=== PATIENT | female | born 1960 | race American Indian/Alaskan Native ===

== ENCOUNTER 2020-04-17 12:01 | Day surgery (SDC) | payer BC ==
[~2020-04-17 12:01] MED LIST: SODIUM CHLORIDE 0.9% 1000 ML 1,000 ML IV SCH
--- NOTE | 2020-04-17 13:55 | Anesthesia Consultation ---
Anesthesia Consult and Med Hx - Airway Anesthetic Teeth Evaluation: Good (cracked bottom rear left) ROM Head & Neck: Adequate Mental/Hyoid Distance: Adequate Mallampati Class: Class II Intubation Access Assessment: Probably Good - Pre-Operative Health Status ASA Pre-Surgery Classification: ASA3 Proposed Anesthetic Plan: MAC - Pulmonary Hx Smoking: No Hx Asthma: No Hx Respiratory Symptoms: No SOB: No COPD: No Home Oxygen Therapy: No Hx Pneumonia: No Hx Sleep Apnea: No - Cardiovascular System Hx Hypertension: Yes Hx Coronary Artery Disease: Yes Hx Heart Attack/AMI: No Hx Angina: No Hx Percutaneous Transluminal Coronary Angioplasty (PTCA): No Hx Cardia Arrhythmia: No Hx Pacemaker: No Hx Internal Defibrillator: No Hx Valvular Heart Disease: No Hx Heart Murmur: No Hx Peripheral Vascular Disease: Yes (clots in the legs 11/24) - Central Nervous System Hx Neuromuscular Disorder: No Hx Seizures: No CVA: Yes (ministrokes 2016) Hx Back Pain: No Hx Psychiatric Problems: No - Gastrointestinal Hx Ulcer: No Hx Gastroesophageal Reflux Disease: No - Endocrine Hx Renal Disease: No Hx End Stage Renal Disease: No Hx Cirrhosis: No Hx Liver Disease: No Hx Insulin Dependent Diabetes: No Hx Non-Insulin Dependent Diabetes: No Hx Thyroid Disease: No Hx Hypothyroidism: No Hx Hyperthyroidism: No - Hematic Hx Anemia: Yes Hx Sickle Cell Disease: No - Other Systems Hx Alcohol Use: No Hx Substance Use: No Hx Cancer: No Hx Obesity: Yes
--- NOTE | 2020-04-17 13:56 | Anesthesia Day of Surgery ---
Anesthesia Day of Surgery - Day of Surgery Patient Examined: Yes Patient H&P Reviewed: Yes Patient is NPO: Yes
[2020-04-17] MEDS ORDERED: propofoL 200 MG/20 ML VIAL IV ONE ×2 (14:02)
[2020-04-17] MEDS ORDERED: LIDOCAINE MPF (2%) 20 MG/1 ML VIAL 5 ML ONE (14:09)
--- NOTE | 2020-04-17 14:41 | Procedure Note ---
Date of procedure: 04/17/20 Pre-op diagnosis: Anemia/ GERD/ Colon Connor;yp Screening Post-op diagnosis: other (Mild to Moderat Erosive Esophagitis and Gastritis/R/O Celiac Disease/Minor,Proximal Colon Diverticuli/ Few Small Rectal Polyps (possibly Hyperplastic)) Anesthesia: MAC Surgeon: DARSHAN HURLEY Estimated blood loss: minimal Pathology: list Specimen disposition: to lab Condition: stable Disposition: same day (Treat with PPI and avoid aspirin and NSAID for 5 days; otherwise resume home medication and follow up in 1 to 2 weeks ([phone]).)
--- NOTE | 2020-04-17 15:00 | Operative Report ---
PROCEDURE: Esophagogastroduodenoscopy with biopsy. INDICATIONS: This is a 60-year-old female originally from [facility] who is being assessed because of anemia and GERD symptoms. EGD was done to make sure there was not any significant upper GI pathology present. DESCRIPTION OF PROCEDURE: The procedure was done after getting informed consent with MAC anesthesia. Instrument was passed through the hypopharynx into the esophagus, which showed [id number] erosive esophagitis. Biopsy was done from the distal as well as the midesophagus to rule out for eosinophilic esophagitis and to assess for the severity of the erosive esophagitis. Stomach showed gastritis. No ulcers were noted in the straight or the retroverted view. Biopsy was done from the gastric antrum, gastric body and angular incisura to rule out for H. pylori and atrophic gastritis. Pylorus was patent. Duodenum in the first and second portion appeared normal. Biopsy was done from the second part also to rule out for possible associated celiac disease because of the patient's underlying history of anemia. There was minimal bleeding associated with the procedure. No complications associated with the procedure. ASSESSMENT: Anemia, gastroesophageal reflux disease symptoms, [id number] erosive esophagitis, gastritis, rule out celiac disease. PLAN: Treat the patient with PPI. Await for the biopsy results. Further treatment adjustment will be according to the biopsy findings. Colonoscopy will also be done as part of evaluation for the anemia and as part of colon polyp screening. Procedure was done in the GI lab with assistance of the GI lab team, which included HOOD Culver, tiffany Hilario and with assistance of Anesthesia. JOB# [id number] KEYANA/DUNIA
--- NOTE | 2020-04-17 15:15 | Operative Report ---
PROCEDURE: Colonoscopy with biopsy. INDICATIONS: The patient is a 60-year-old female originally from [facility] who is being assessed for anemia and as part of colon polyp screening. She had EGD done prior to the colonoscopy, which showed [id number] erosive esophagitis and gastritis. DESCRIPTION OF PROCEDURE: Colonoscopy was done after getting informed consent with MAC anesthesia. Initial rectal exam was unremarkable. Instrument was passed through the rectum onto the cecum, which was identified with ileocecal valve and appendiceal orifice. Visualization was fair to good. There were a few scattered diverticula noted in the proximal colon. The remaining part of the proximal colon other than for the few diverticula did not show any significant pathology. The transverse colon as well as the descending colon and sigmoid showed normal mucosa. There were a few minor polyps noted in the rectum, possibly hyperplastic that were removed by cold biopsy with minimal bleeding and no hemorrhoids were noted on the retroverted view. ASSESSMENT: Colon polyp screening and anemia. Few rectal polyps noted, possibly hyperplastic. Few proximal colon diverticula. The patient will be encouraged to take fiber supplements, treated with PPI because of the EGD findings of esophagitis and gastritis and follow up in the office in 1-2 weeks' time. The procedure was done in the GI lab with assistance of the GI lab team, which included RN, Roxanne Culver as well as Yanelis allen and with assistance of anesthesia. Thank you for the kind referral. JOB# [id number] KEYANA/DUNIA
[2020-04-17 15:52] VITALS: BP 141/73
== END 2020-04-17 12:02 | disposition home or self-care (01) ==
LOC: GIO 12:01
DX: D64.9 Anemia, unspecified (principal); K57.30 Diverticulosis of large intestine without perforation or abscess without bleeding; K62.1 Rectal polyp; K29.70 Gastritis, unspecified, without bleeding; K21.00 Gastro-esophageal reflux disease with esophagitis, without bleeding; K31.89 Other diseases of stomach and duodenum; I25.10 Atherosclerotic heart disease of native coronary artery without angina pectoris; I10 Essential (primary) hypertension; E66.9 Obesity, unspecified; Z68.30 Body mass index [BMI] 30.0-30.9, adult; Z86.718 Personal history of other venous thrombosis and embolism; Z79.899 Other long term (current) drug therapy; Z86.73 Personal history of transient ischemic attack (TIA), and cerebral infarction without residual deficits
CPT/HCPCS: 43239; 45380; 88305; 88342; J2704; J7030

== ENCOUNTER 2020-06-08 08:40 | Outpatient (CLI) | payer BC ==
--- NOTE | 2020-06-08 09:39 | XRay Report ---
CHEST 2 VIEWS INDICATION / CLINICAL INFORMATION: 126.99 CHEST ELEVATED FOR PE. COMPARISON: August 08, 2011 FINDINGS: SUPPORT DEVICES: None. HEART / MEDIASTINUM: No significant abnormality. LUNGS / PLEURA: No significant pulmonary or pleural abnormality. No pneumothorax. ADDITIONAL FINDINGS: No significant additional findings. IMPRESSION: 1. No acute findings. Signer Name: Barber Mena MD Signed: 06/08/2020 9:34 AM Workstation Name: [id number]
--- NOTE | 2020-06-08 09:44 | Nuclear Medicine Report ---
Perfusion Scan HISTORY: Left shoulder pain for a few months, past history of PTE. TECHNIQUE: Patient was given 5.1 mCi of technetium MAA. COMPARISON: Chest x-ray from today FINDINGS: There is symmetric perfusion in the lungs with no appreciable photopenic defect identified . IMPRESSION: Unremarkable exam. Signer Name: Sascha Weaver MD Signed: 06/08/2020 9:39 AM Workstation Name: [id number]
== END 2020-06-08 08:41 | disposition home or self-care (01) ==
LOC: NM 08:40
PROVIDERS: ATTEND Internal Medicine
DX: I26.99 Other pulmonary embolism without acute cor pulmonale (principal)
CPT/HCPCS: 71046; 78580; A9540